=== PATIENT | male | born 1940 | race African-American/Black ===

== ENCOUNTER 2025-03-10 14:10 | Emergency (ER) | payer OTHER ==
[~2025-03-10] VITALS: Ht 170.2 cm; Wt 72.0 kg
[2025-03-10 14:13] VITALS: O2SAT 99
[2025-03-10 14:42] LABS: BASOPHILS % 0.2 % (0.0-2.0); EOSINOPHILS % 0.2 % (0.0-5.0); HEMATOCRIT. 44.9 % (42.0-52.0); HEMOGLOBIN. 15.2 g/dL (14.0-18.0); LYMPHOCYTES % 11.6 % (20.0-50.0); MEAN PLATELET VOLUME 8.8 fl (7.4-10.4); MONOCYTES % 7.9 % (2.0-8.0); NEUTROPHILS % 80.1 % (40.0-76.0); PLATELET 249 x1000/uL (130-400); RED BLOOD CELL COUNT 4.46 mill/uL (4.7-6.1); RED CELL DISTRIBUTION WIDTH 14.2 % (11.6-14.6)
[2025-03-10] MEDS: SODIUM CHLORIDE 0.9% 1,000 ML IV ONE (14:52)
[2025-03-10 15:02] LABS: CREATININE 1.0 mg/dL (0.6-1.3)
[2025-03-10 15:03] LABS: UREA NITROGEN BLOOD 10 mg/dL (9-23)
[2025-03-10 15:04] LABS: TROPONIN I HIGH SENSITIVITY 9 ng/L (3.0-53)
[2025-03-10 16:47] LABS: CLARITY URINE CLEAR (CLEAR); COLOR URINE YELLOW (YELLOW); GLUCOSE URINE NEGATIVE (NEGATIVE); KETONES URINE NEGATIVE (NEGATIVE); LEUKOCYTE ESTERASE URINE NEGATIVE (NEGATIVE); NITRITE URINE NEGATIVE (NEGATIVE); OCCULT BLOOD URINE NEGATIVE (NEGATIVE); PH URINE 7.5 (4.5-8.0); PROTEIN URINE 1+ (NEGATIVE); SPECIFIC GRAVITY URINE 1.007 (1.005-1.030); UROBILINOGEN URINE 0.2 E.U./dL (0.2-1.0)
[2025-03-10 17:01] LABS: BACTERIA URINE TRACE; RBC URINE 0-2 /hpf (0-2); SQUAMOUS EPITHELIAL CELL URINE RARE /lpf (RARE/1+); WBC URINE 0-2 /hpf (0-2)
[2025-03-10 17:31] LABS: TROPONIN I HIGH SENSITIVITY 9 ng/L (3.0-53)
[2025-03-10 20:12] VITALS: BP 152/83; PULSE 88; RESP 25; TEMP 36.9; O2SAT 99
== END 2025-03-10 20:10 | disposition short-term general hospital (02) ==
LOC: ER 14:10
DX: R55 Syncope and collapse (principal); E86.0 Dehydration; I48.91 Unspecified atrial fibrillation; I10 Essential (primary) hypertension; W01.0XXA Fall on same level from slipping, tripping and stumbling without subsequent striking against object, initial encounter; X58.XXXA Exposure to other specified factors, initial encounter; Y93.89 Activity, other specified; Y92.89 Other specified places as the place of occurrence of the external cause; Y99.8 Other external cause status
CPT/HCPCS: 99285; 96360; 96361; 70450; 71045; 80048; 81003; 85025; 84484; 36415; J7030; A4606